=== PATIENT | female | born 1985 | race African-American/Black ===

== ENCOUNTER 2016-10-22 18:24 | Emergency (ER) | payer OTHER ==
[~2016-10-22] VITALS: Ht 170.2 cm; Wt 84.0 kg
[~2016-10-22 18:24] MED LIST: AMLO10TA55 PO; FLUO-126 PO; FURO20TA4 PO; HYDR25TA PO; METF500T4 PO; MULT-685 PO
[2016-10-22 19:53] VITALS: BP 135/72
[2016-10-22] MEDS ORDERED: IBUPROFEN 800 MG TABLET PO ONE (20:30)
== END 2016-10-22 20:40 | disposition home or self-care (01) ==
LOC: EMS 18:25
DX: S80.11XA Contusion of right lower leg, initial encounter (principal); F12.90 Cannabis use, unspecified, uncomplicated; W01.0XXA Fall on same level from slipping, tripping and stumbling without subsequent striking against object, initial encounter; Y93.89 Activity, other specified; Y92.89 Other specified places as the place of occurrence of the external cause; Y99.8 Other external cause status
CPT/HCPCS: 99282